=== PATIENT | female | born 1995 | race Two or more races ===

== ENCOUNTER 2016-12-31 15:20 | Emergency (ER) | payer SELFPAY ==
[~2016-12-31] VITALS: Ht 170.2 cm; Wt 55.0 kg
[2016-12-31 15:49] VITALS: BP 129/92
== END 2016-12-31 20:30 | disposition left against medical advice (07) ==
LOC: ER 15:20
DX: R07.89 Other chest pain (principal); R42 Dizziness and giddiness; R06.02 Shortness of breath; Z53.21 Procedure and treatment not carried out due to patient leaving prior to being seen by health care provider
CPT/HCPCS: 93005